=== PATIENT | male | born 1985 | race African-American/Black ===

== ENCOUNTER 2021-05-05 02:28 | Emergency (ER) | payer MEDICAID ==
[~2021-05-05] VITALS: Ht 170.2 cm; Wt 69.0 kg
[2021-05-05] MEDS ORDERED: LIDOCAINE HCL 1% 20ML VIAL (Pyxis) INJ INFIL ONE (03:00)
[2021-05-05] MEDS ORDERED: CEFTRIAXONE SODIUM 500 MG/VIAL IM ONE (03:00)
[2021-05-05] MEDS ORDERED: DOXYCYCLINE HYCLATE 100MG CAPSULE PO ONE (03:00)
[2021-05-05] MEDS ORDERED: LIDOCAINE HCL 1% 10 MG/ML 10ML VIAL IJ SCH (03:00)
[2021-05-05 03:12] LABS: CLARITY URINE CLEAR (CLEAR); COLOR URINE YELLOW (YELLOW); KETONES URINE TRACE (NEGATIVE); LEUKOCYTE ESTERASE URINE 2+ (NEGATIVE); NITRITE URINE NEGATIVE (NEGATIVE); OCCULT BLOOD URINE NEGATIVE (NEGATIVE); PH URINE 5.5 (4.5-8.0); PROTEIN URINE NEGATIVE (NEGATIVE); SPECIFIC GRAVITY URINE 1.031 (1.005-1.030)
[2021-05-05] MEDS ORDERED: DOXY100T2 MT (03:44)
[2021-05-05 05:20] VITALS: BP 125/86
[2021-05-07 04:07] LABS: NEISSERIA GONORRHOEAE NAA Negative (Negative)
== END 2021-05-05 05:36 | disposition home or self-care (01) ==
LOC: ER 02:28
DX: R36.9 Urethral discharge, unspecified (principal); A64 Unspecified sexually transmitted disease; J45.909 Unspecified asthma, uncomplicated
CPT/HCPCS: 81003; 87086; 87491; 87591; 96372; 99283; J0696; J3490

== ENCOUNTER 2021-06-27 23:22 | Emergency (ER) | payer MEDICAID ==
[~2021-06-27] VITALS: Ht 170.2 cm; Wt 68.0 kg
[~2021-06-27 23:22] MED LIST: DOXY100T2 MT
[2021-06-27 23:55] VITALS: BP 136/62
[2021-06-28] MEDS ORDERED: LIDOCAINE HCL 1% 20ML VIAL (Pyxis) INJ INFIL SCH (00:15)
[2021-06-28] MEDS ORDERED: CEFTRIAXONE SODIUM 500 MG/VIAL IM SCH (00:15)
[2021-06-28 01:11] LABS: CLARITY URINE CLEAR (CLEAR); COLOR URINE YELLOW (YELLOW); KETONES URINE TRACE (NEGATIVE); LEUKOCYTE ESTERASE URINE 2+ (NEGATIVE); NITRITE URINE NEGATIVE (NEGATIVE); OCCULT BLOOD URINE NEGATIVE (NEGATIVE); PROTEIN URINE NEGATIVE (NEGATIVE); SPECIFIC GRAVITY URINE 1.029 (1.005-1.030)
[2021-06-28] MEDS ORDERED: DOXY-326 PO (01:53)
== END 2021-06-28 02:31 | disposition home or self-care (01) ==
LOC: ER 23:22
DX: N34.2 Other urethritis (principal)
CPT/HCPCS: 81003; 87086; 96372; 99283; J0696; J3490